=== PATIENT | female | born 1940 | race Caucasian/White ===

== ENCOUNTER 2016-06-08 16:59 | Emergency (ER) | payer OTHER, BC ==
[2016-06-08 17:24] VITALS: BP 130/69; PULSE 88; TEMP 98.7; BMI 21.2
--- NOTE | 2016-06-08 18:46 | PDOC ---
History of Present Illness <Reema Morelos - Last Filed: 06/08/16 22:07> - History of Present Illness Initial Comments: 06/08/16 22:17 Patient is a 75 year old female with significant medical hx of DM, hypothyroidism, osteoarthritis, AFib, and CHF who is presenting to the ED with left hip pain for three days. Today the patient saw her PMD for progressive left hip pain. She complains of radiation down to her left groin and reports that she can't put weight on it. The patient also reports limited range of motion to the hip. While at her PMD's office, the patient received an x-ray which revealed calcifications in the pelvis. Patient states that her PMD thinks there is a hairline fracture present and referred her to the ED for further evaluation. The patient recent falls, recent traumas and any other constitutional symptoms other than pain. PMD: Simeon Ayala <Valeria Mota - Last Filed: 06/08/16 22:27> - General Chief Complaint: Pain Stated Complaint: PCP SENT/HIP PAIN Time Seen by Provider: 06/08/16 18:08 Past History - Psycho/Social/Smoking Cessation Hx Suicidal Ideation: No Smoking History: Former smoker Have you smoked in the past 12 months: No Information on smoking cessation initiated: No <Reema Morelos - Last Filed: 06/08/16 22:07> <Valeria Mota - Last Filed: 06/08/16 22:27> - Past Medical History Allergies/Adverse Reactions: Allergies Allergy/AdvReac Type Severity Reaction Status Date / Time acyclovir AdvReac Verified 06/08/16 17:19 Home Medications: Ambulatory Orders Cetirizine HCl 10 mg PO DAILY 06/08/16 Garlic [Garlic Oil] 1,000 mg PO DAILY 06/08/16 Levothyroxine [Synthroid -] 50 mcg PO DAILY 06/08/16 Sertraline HCl 25 mg PO DAILY 06/08/16 Sotalol HCl [Sotalol] 80 mg PO BID 06/08/16 Zinc Sulfate 220 mg PO DAILY 06/08/16 Review of Systems - Review of Systems Comments:: 06/08/16 22:24 CONSTITUTIONAL: Absent: fever, chills, diaphoresis, generalized weakness, malaise, loss of appetite HEENT: Absent: rhinorrhea, nasal congestion, throat pain, throat swelling, difficulty swallowing, mouth swelling, ear pain, eye pain, visual changes CARDIOVASCULAR: Absent: chest pain, syncope, palpitations, irregular heart rate, lightheadedness , peripheral edema RESPIRATORY: Absent: cough, shortness of breath, dyspnea with exertion, orthopnea, wheezing, stridor, hemoptysis GASTROINTESTINAL: Absent: abdominal pain, abdominal distension, nausea, vomiting, diarrhea, constipation, melena, hematochezia GENITOURINARY: Absent: dysuria, frequency, urgency, hesitancy, hematuria, flank pain, genital pain MUSCULOSKELETAL: Present: left hip pain, left groin pain Absent: myalgia, arthralgia, joint swelling SKIN: Absent: rash, itching, pallor HEMATOLOGIC/IMMUNOLOGIC: Absent: easy bleeding, easy bruising, lymphadenopathy, frequent infections ENDOCRINE: Absent: unexplained weight gain, unexplained weight loss, heat intolerance, cold intolerance NEUROLOGIC: Absent: headache, focal weakness or paresthesia, dizziness, unsteady gait, seizure, mental status changes, bladder or bowel incontinence. PSYCHIATRIC: Absent: anxiety, depression, suicidal or homicidal ideation, hallucinations <Valeria Mota - Last Filed: 06/08/16 22:27> *Physical Exam - Vital Signs Last Vital Signs Temp Pulse Resp BP Pulse Ox 98.7 F 88 19 130/69 95 06/08/16 17:19 06/08/16 17:19 06/08/16 17:19 06/08/16 17:19 06/08/16 17:19 <Reema Morelos - Last Filed: 06/08/16 22:07> - Vital Signs Last Vital Signs Temp Pulse Resp BP Pulse Ox 98.7 F 88 19 130/69 95 06/08/16 17:19 06/08/16 17:19 06/08/16 17:19 06/08/16 17:19 06/08/16 17:19 - Physical Exam Comments: 06/08/16 22:25 GENERAL: Well developed, well nourished. Awake and alert. No acute distress. HEENT: Normocephalic, atraumatic. PERRLA, EOMI. No conjunctival pallor. Sclera are non- icteric. Moist mucous membranes. Oropharynx is clear. NECK: Supple. Full ROM. No JVD. Carotid pulses 2+ and symmetric, without bruits. No thyromegaly. No lymphadenopathy. CARDIOVASCULAR: Regular rate and rhythm. No murmurs, rubs, or gallops. Distal pulses are 2+ and symmetric. PULMONARY: No evidence of respiratory distress. Lungs clear to auscultation bilaterally. No wheezing, rales or rhonchi. ABDOMINAL: Flat. Non-tender. Non-distended. No rebound or guarding. No organomegaly. Normoactive bowel sounds. MUSCULOSKELETAL: Normal range of motion at all joints. No bony deformities or tenderness. No CVA tenderness. EXTREMITIES: No cyanosis. No clubbing. No edema. No calf tenderness. SKIN: Warm and dry. Normal capillary refill. No rashes. No jaundice. NEUROLOGICAL: Alert, awake, appropriate. Cranial nerves 2-12 intact. Normal speech. PSYCHIATRIC: Cooperative. Good eye contact. Appropriate mood and affect. <Valeria Mota - Last Filed: 06/08/16 22:27> ED Treatment Course - RADIOLOGY Radiograph Interpretation: 06/08/16 22:[address] Extremity CT Impression: Both hip joints appear intact. No gross pubic rami fracture is identified. There is mild compression of L4 superior endplate, of indeterminate age, likely chronic. Correlate clinically for further evaluation. Reported By: Nataly Lind MD - Medications Given in the ED: ED Medications Discontinued Medications Generic Name Dose Route Start Last Admin Trade Name Freq PRN Reason Stop Dose Admin Acetaminophen 650 mg 06/08/16 21:09 06/08/16 19:40 Tylenol - PO 06/08/16 21:10 650 mg ONCE ONE Administration Ketorolac Tromethamine 60 mg 06/08/16 21:09 06/08/16 21:23 Toradol Injection - IM 06/08/16 21:10 60 mg ONCE ONE Administration <Valeria Mota - Last Filed: 06/08/16 22:27> *DC/Admit/Observation/Transfer <Reema Morelos - Last Filed: 06/08/16 22:07> - Attestations Scribe Attestion: 06/08/16 22:27 Documentation prepared by Valeria Mota, acting as biomedical field service engineer for Reema Morelos MD. <Valeria Mota - Last Filed: 06/08/16 22:27> Diagnosis at time of Disposition: Hip pain Qualifiers: Laterality: left Qualified Code(s): M25.552 - Pain in left hip - Discharge Dispostion Disposition: HOME Condition at time of disposition: Stable - Referrals Referrals: Simeon Ayala MD [Primary Care Provider] - - Patient Instructions Printed Discharge Instructions: DI for Osteoarthritis Additional Instructions: please followup with Dr Simeon Ayala
[2016-06-08] MEDS ORDERED: ACETAMINOPHEN 325 MG TABLET (FP) ONE (19:18)
[2016-06-08] MEDS ORDERED: ACETAMINOPHEN 325 MG TABLET (FP) PO ONE (21:09)
[2016-06-08] MEDS ORDERED: KETOROLAC TROMETHAMINE 60 MG/2 ML VIAL IM ONE (21:09)
[2016-06-08] MEDS ORDERED: KETOROLAC TROMETHAMINE 60 MG/2 ML VIAL ONE (21:13)
== END 2016-06-08 22:20 | disposition home or self-care (01) ==
LOC: JER 16:59
PROC: 3E0233Z Introduction of Anti-inflammatory into Muscle, Percutaneous Approach (ICD-10-PCS; principal; 2016-06-08)
DX: M19.90 Unspecified osteoarthritis, unspecified site (principal); E11.9 Type 2 diabetes mellitus without complications; E03.9 Hypothyroidism, unspecified; I48.91 Unspecified atrial fibrillation; I50.9 Heart failure, unspecified
CPT/HCPCS: 72192-TC; 73700-TC-RT; 96372; 99283-25